=== PATIENT | female | born 1970 | race Caucasian/White ===

== ENCOUNTER 2020-07-09 14:00 | Outpatient (RCR) | payer BC, SELFPAY | END 2020-07-15 12:03 | disposition other institution (70) | LOC: HO.PT 14:00 | PROVIDERS: PCP Internal Medicine; Visit Provider Physician Assistant Medical | DX: S06.9X0D Unspecified intracranial injury without loss of consciousness, subsequent encounter (principal); X58.XXXD Exposure to other specified factors, subsequent encounter | CPT/HCPCS: 97110; 97140; 97530 ==

== ENCOUNTER 2023-07-06 18:42 | Outpatient (REF) | payer BC, SELFPAY ==
--- NOTE | ~2023-07-06 | MR_ITS ---
EXAMINATION: MR BRAIN WITHOUT CONTRAST CLINICAL INFORMATION: TBI 2019 COMPARISON: None TECHNIQUE: Multiplanar multisequence MR imaging of the brain was obtained without intravenous contrast. FINDINGS: There is no acute infarct on diffusion-weighted imaging. No extra-axial collection or mass effect/herniation. There is encephalomalacia, gliosis, and hemosiderin staining involving the left greater than right anterior and inferior frontal lobes, compatible with sequela of traumatic injury. No hydrocephalus. The ventricles are normal in morphology and size. The major flow voids at the skull base are preserved. The midline structures are normal. The cerebellar tonsils are normally positioned. The craniocervical junction is normal. Marrow signal is within normal limits. The visualized soft tissues are without significant abnormality. Mild ethmoid sinus mucosal thickening. MR/MR head/brain wo con IMPRESSION: Encephalomalacia and gliosis involving the left greater than right anterior and inferior frontal lobes, compatible with sequela of traumatic injury.
--- NOTE | ~2023-07-06 | MR_ITS ---
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 FINDINGS: Cervical Spine: Normal anatomic alignment. No suspicious marrow signal or focal osseous lesion. No significant marrow edema. The vertebral body heights are maintained. The intervertebral discs are of normal height and signal. The cervical spinal cord is normal in caliber and signal Limited evaluation of the soft tissues of the neck without demonstrated abnormalities. The left vertebral artery flow-void is not well-visualized and is likely congenitally diminutive with prominent right vertebral artery. Normal appearance of the cervicomedullary junction and visualized posterior fossa SPINAL LEVELS: C2-C3: No significant spinal canal or neuroforaminal narrowing C3-C4: Mild uncovertebral hypertrophy and facet arthropathy. Mild right neural foraminal narrowing. No significant spinal canal stenosis. C4-C5: Mild uncovertebral hypertrophy and facet arthropathy. Mild right neural foraminal narrowing. No significant spinal canal stenosis. C5-C6: No significant spinal canal or neuroforaminal narrowing C6-C7: Uncovertebral hypertrophy and mild facet arthropathy. Mild to moderate bilateral neural foraminal narrowing. No significant spinal canal stenosis. C7-T1: No significant spinal canal or neuroforaminal narrowing Lumbar Spine: Normal anatomic alignment. No suspicious marrow signal or focal osseous lesion. No significant marrow edema. L5 vertebral body hemangioma. The vertebral body heights are maintained. The intervertebral discs are of normal height and signal. The conus medullaris terminates at the level of L2. The distal spinal cord is normal in appearance. The cauda equina nerve roots appear normal. No significant abnormalities of the paraspinal musculature. Limited evaluation of the intra-abdominal structures without significant abnormalities. The abdominal aorta is of normal contour and caliber. SPINAL LEVELS: L1-L2: Shallow central disc extrusion with caudal and cranial migration of disc material which indents the midline ventral thecal sac but does not contribute to significant spinal canal stenosis. No significant neural foraminal narrowing. L2-L3: No significant spinal canal or neuroforaminal narrowing. L3-L4: No significant spinal canal or neuroforaminal narrowing. L4-L5: No significant spinal canal or neuroforaminal narrowing. Shallow disc bulge with posterior annular fissure. L5-S1: Shallow disc bulge with superimposed small left central protrusion. Mild facet arthropathy. MR/MR cervical spine wo con IMPRESSION: 1. Mild degenerative changes of the cervical spine as described above without significant spinal canal stenosis, cord compression, or cord signal abnormality. There is mild to moderate bilateral neural foraminal narrowing at C6-C7. 2. Mild degenerative changes of the lumbar spine as described above. No significant spinal canal stenosis, neural foraminal narrowing, or nerve impingement.
== END 2023-07-06 18:43 | disposition home or self-care (01) ==
LOC: HO.MRI 18:42
PROVIDERS: PCP Internal Medicine; Visit Provider Psychiatry & Neurology Neurology
DX: I61.9 Nontraumatic intracerebral hemorrhage, unspecified (principal); M50.20 Other cervical disc displacement, unspecified cervical region; M51.25 Other intervertebral disc displacement, thoracolumbar region
CPT/HCPCS: 70551; 72141; 72148

== ENCOUNTER 2023-07-06 20:17 | Outpatient (REF) | payer BC, SELFPAY | END 2023-07-06 20:18 | disposition home or self-care (01) | LOC: HO.MRI 20:17 | PROVIDERS: PCP Internal Medicine; Visit Provider Psychiatry & Neurology Neurology | DX: Z13.89 Encounter for screening for other disorder (principal) ==

== ENCOUNTER 2025-05-03 13:23 | Outpatient (AMB) | payer BC, SELFPAY ==
--- OUTSIDE RECORDS SUMMARY | 2025-05-03 13:26 | XMS_ITS | Clinical Summary ---
Author Organization [facility] Address [address] [place] [id number] Phone Care Team Providers Care Traveling Nurse Name Role Phone Lakeisha Yoon MD Primary Care Provide r Allergies Active Allergy Reactions Criticality Noted Date Comments Sulfa (Sulfonamide Antibiotics) 09/2022 Medications amLODIPine (NORVASC) 5 MG tablet 04/25/2023 Active amoxicillin-clav ulanate (AUGMENTIN) 875-125 mg per tablet Take 1 tablet by mouth 2 (two) times a day. 03/06/2023 Active levothyroxine (SYNTHROID, LEVOTHROID) 75 MCG tablet Take 1 tablet by mouth every morning. 04/01/2023 Active lifitegrast (XIIDRA) 5 % opthalmic solution Apply 1 drop to eye. 02/16/2023 Active pravastatin (PRAVACHOL) 40 MG tablet TAKE 1 TABLET BY MOUTH EVERY DAY 02/16/2023 Active Social History Tobacco Use Types Packs/Day Years Used Date Smoking Tobacco: Never Smokeless Tobacco: Never Tobacco Cessation:Counseling Given: Not Answered Alcohol Use Standard Drinks/Week Comments Yes 0 (1 standard drink = 0.6 oz pur e alcohol) rarely Education Answer Date Recorded Are you interested in more education? Not on imtiaz e 01/22/2023 Are you concerned about learning? Not on file 01/22/2023 No 01/22/2023 No 01/22/2023 Digital Access Answer Date Recorded No 02/20/2023 No 02/20/2023 Reliable internet access at home? Not on file 02/20/2023 Device with a working camera? Not on file Comments Unknown Sex and Gender Information Value Date Recorded Sex Assigned at Not on file Legal Sex Female 9:48 AM EDT Gender Identity Not on file Sexual Orientation Not on file Last Filed Vital Signs Vital Sign Reading Time Taken Comments Blood Pressure 120/80 04/27/2023 7:24 PM EDT Pulse 81 04/27/2023 7:24 PM EDT Temperature 36.1 C (97 F) 04/27/2023 7:24 PM EDT Respiratory Rate 20 04/27/2023 7:24 PM EDT Oxygen Saturation 99% 04/27/2023 7:24 PM EDT Inhaled Oxygen Concentration - - Weight 46.3 kg (102 lb) 04/27/2023 7:24 PM EDT Height 157.5 cm (5' 2 ) 04/27/2023 7:24 PM EDT Body Mass Index 18.66 04/27/2023 7:24 PM EDT Plan of Treatment Health Maintenance Due Date Last Done Comments LIPID PANEL 1968 TSH LEVEL 1968 DEPRESSION SCREENING 1980 HEPATITIS C SCREENING 01/25/1986 HIV ONE-TIME SCREENING (18-6 5 YEARS) 01/25/1986 PAP SMEAR 01/25/1989 MAMMOGRAM 2008 COLOGUARD 01/25/2013 COLONOSCOPY 01/25/2013 COLORECTAL CANCER SCREENING 01/25/2013 FIT TEST 01/25/2013 FOBT 01/25/2013 SIGMOIDOSCOPY 01/25/2013 VIRTUAL COLONOSCOPY 01/25/2013 ZOSTER VACCINES (1 of 2) 01/25/2018 PNEUMOCOCCAL VACCINES (50+ years) (2 of 2 - PCV) 05/29/2021 05/29/2020 COVID-19 VACCINE (4 - 2023-2 5 season) 2024 07/07/2021, 11/22/2020, 11/01/2020 Adult Td,Tdap Booster 03/11/2027 03/11/2017 , 03/05/2004 SMOKING STATUS SCREENING (On ce After 26 Yrs) Completed 04/27/2023 HEPATITIS A VACCINES Aged Out No long er eligible based on patient's age to complete this topic HIB VACCINES Aged Out No longer eligi ble based on patient's age to complete this topic MENINGOCOCCAL VACCINES (ACWY) Aged Out No longer eligible based on patient's age to complete this topic MENINGOCOCCAL VACCINES (B) Aged Out N o longer eligible based on patient's age to complete this topic Medical Devices Not on file Insurance Reviews42 [facility] [employer] [facility] [employer] [facility] Subscriber Plan / Payer (Ef fective 2017-Present) Name:Mary Ellen Mahmood Relation to Subscriber:Self Name:Mary Ellen Mahmood Payer ID:[id number] (NAIC) Group ID:[id number] Type:PPO Address: [address] Subscriber Plan / Payer (Ef fective 2017-Present) Name:Mary Ellen Mahmood Relation to Subscriber:Self Name:Mary Ellen Mahmood Payer ID:[id number] (NAIC) Group ID:[id number] Type:PPO Address: [facility] [id number], [place] [address] [place] [address] Care Teams Traveling Nurse Relationship Specialty Start Date End Date Lakeisha Yoon MD [address] [place] [id number] PCP - General Internal Medicine 06/07/20 Additional Source Comments The information contained in this document represents components of the legal health record. It is not the complete legal health record.[facility]
--- OUTSIDE RECORDS SUMMARY | 2025-05-03 13:26 | XMS_ITS | Clinical Summary ---
Author Organization [facility] [address] [place] [address] [place] [phone] Phone Care Team Providers Care Factory Helper Name Role Phone Archana Grimes MD Primary Care Prov ider Allergies Active Allergy Reactions Criticality Noted Date Comments Dog Dander 09/25/2015 Other Swelling 09/25/2015 Sulfa (Sulfonamide Antibiotics) 11/25 Medications cetirizine (ZyrTEC) 10 mg tablet Take 1 tablet (10 mg total) by mouth 1 (one) time each day. 2 Active EPINEPHrine (EpiPen 2-Anup) 0.3 mg/0.3 mL injection Inject 0.3 mL (0.3 mg total) into the thigh if needed for anaphylaxis. 1 Active ibuprofen (ADVIL,MOTRIN) 600 mg tablet Take 1 tablet (600 mg total) by mouth every 6 (six) hours if needed for mild pain. 4 Active pseudoephedrine (SUDAFED) 120 mg 12 hr tablet Take 1 tablet (120 mg total) by mouth every 12 (twelve) hours. Active lifitegrast (Xiidra) 5 % dropperette Administer 1 drop into both eyes 2 (two) times a day. 9 Active levothyroxine (SYNTHROID, LEVOTHROID) 75 mcg tablet TAKE 1 TABLET BY MOUTH EVERY DAY 90 tablet 1 5 Active pravastatin (PRAVACHOL) 40 mg tablet TAKE 1 TABLET BY MOUTH EVERY DAY 90 tablet 3 5 Active amLODIPine (NORVASC) 5 mg tablet TAKE 1 AND 1/2 TABLETS DAILY BY MOUTH 135 tablet 3 5 Active albuterol HFA (PROAIR HFA ; PROVENTIL HFA ; VENTOLIN HFA) 90 mcg/actuation inhaler INHALE 2 PUFFS INTO THE LUNGS EVERY 4 HOURS NEEDED FOR COUGH, WHEEZING OR SHORTNESS OF BREATH. 8.5 each 5 Active Active Problems Problem Noted Date Diagnosed Date LBBB (left bundle branch block) 01/05/2023 Overview (07/03/2024): 01/05/2023 Patient has signed AGAINST MEDICAL ADVICE form and declines to go to emergency room Irregular heart beat 09/30/2022 Overview (07/03/2024): 09/30/21- Patient is noted to have abnormal heart auscultation as well as irregular pulse on physical exam today. This could be related to regular use of pseudoephedrine. I have suggested EKG. Patient refuses. We discussed that failure to complete EKG could result in missed or delayed diagnosis of PACs, PVCs, atrial flutter, atrial fibrillation, heart block, other arrhythmia, serious injury, disability and/or . Patient has continued to refuse EKG AGAINST MEDICAL ADVICE. She does sign AMA form which is witnessed by triage nursing staff (Amanda). I have suggested pt update blood work including CBC, CMP, thyroid profile, and magnesium level as well given irregular pulse/abnormal heart auscultation. Electrolyte disturbance, anemia, and/or abnormal TSH could also be contributing to this. Patient appears frustrated and states I just had blood work done . We discussed that her lab work was last done 7 months ago. Also given that this is a new finding this further supports completing updated lab work and getting EKG. After continued discussion on reason for testing patient is agreeable to bloodwork and states that she will stop by lab to have this done. We discussed that lab work does not need to be done fasting and can be completed today. Does not appear that patient ended up completing the lab work. Raynaud's disease without gangrene 10/09/2021 HTN (hypertension) 07/15/2020 Assessment & Plan (03/19/2025 1:07 PM EDT): Orders: Basic metabolic panel; Future Thyroid stimulating hormone; Future Lipid panel with reflex to direct LDL; Future Assessment & Plan (01/01/2025 3:30 PM EDT): Blood pressure is mildly elevated today, however patient has a migraine. Will not make any changes on her medications. Will follow up in 2 months. Closed fracture of coccyx ([facility] V24, [facility] V28) 06/19/2020 Head trauma 06/13/2020 Overview (07/03/2024): Admitted [facility] 05/27-05/31/20. Left>right bifrontal contusions with intraparenchymal hemorrhage, subdural and subarachnoid bleeding, right occipital skull fx extending to skull base. 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 Wetzel (ENT). After 05/27/20 fall from ladder Hemotympanum, left 06/13/2020 Overview (07/03/2024): Following head trauma 05/27/2020 Pure hypercholesterolemia 07/28/2013 Assessment & Plan (03/19/2025 1:16 PM EDT): Orders: Basic metabolic panel; Future Thyroid stimulating hormone; Future Lipid panel with reflex to direct LDL; Future Allergic rhinitis 12/12/2012 Back pain 12/12/2012 Hip pain 12/12/2012 Hypothyroidism 12/12/2012 Assessment & Plan (03/19/2025 1:07 PM EDT): Orders: Basic metabolic panel; Future Thyroid stimulating hormone; Future Lipid panel with reflex to direct LDL; Future Neck pain 12/12/2012 Encounters Date Type Department Care Team Description 04/17/2025 Telephone Adult Medicine [address] [phone] Rema krishna, Archana Calhoun MD Forms/questionnaires (FMLA) 04/11/2025 Telephone Adult Medicine [address] [phone] Archana Wood MD Call Back Requested 03/19/2025 12:30 PM EDT Office Visit [address] [phone] Archana Wood MD Primary hypertension (Primary Dx); Hypothyroidism, unspecified type; Pure hypercholesterolemia; Dizziness 02/09/2025 2:22 PM EDT - 02/09/2025 11:59 PM EDT Hospital Encounter Radiology Department - [address] [phone] Cerebral hemorrhage ([facility] V24, [facility] V28) Discharge Disposition: Home or Self Care from Last 3 Months Immunizations Name Administration Dates Next Due Influenza Quadravalent, MDCK , 0.5ml, preservative free (Flucelvax) 6mo and older 07/15/2020 Influenza trivalent, with pr eservative (Fluzone; Afluria) 6mo and older 07/07/2021 Pneumococcal polysaccharide 23 valent (Pneumovax 23) 2yo and older 05/29/2020 Td Tetanus diptheria (Tdvax) 7yo and older 03/11,03/05/2004 Surgical History Surgery Date Site/Laterality Comments CHOLECYSTECTOMY 09/27/2007 PROCEDURE: HISTORICAL CHOLECYSTECTOMY ESOPHAGOGASTRODUODENOSCOPY 06/06/2010 PROCEDURE: [place] ESOPHAGOGASTRODUODENOSCOPY TRANSORAL DIAGNOSTIC; COMMENT: Dr Bishop - mild antral gastritis otherwise normal to the third part of the duodenum. Duodenal and gastric biopsies are normal. H. pylori is negative. COLONOSCOPY 06/06/2010 PROCEDURE: HISTORICAL COLONOSCOPY; COMMENT: Dr Bishop - normal. Random colonic biopsies normal. TONSILLECTOMY PROCEDURE: HISTORICAL TONSILLECTOMY OTHER SURGICAL HISTORY PROCEDURE: HISTORY OTHER; COMMENT: hemorrhoidectomy after vaginal delivery KNEE SURGERY Left PROCEDURE: HISTORICAL KNEE SURGERY; COMMENT: Dr. Mike Nguyen Medical History Medical History Date Comments Hypothyroidism 12/12/2012 DX:Hypothyroidis m Fibromyalgia 12/12/2012 DX:Fibromyalgia Neck pain 12/12/2012 DX:Neck pain Back pain 12/12/2012 DX:Back pain Hip pain 12/12/2012 DX:Hip pain Allergic rhinitis 12/12/2012 DX:Allergic rh initis Pure hypercholesterolemia 07/28/2013 DX:Pur e hypercholesterolemia Elevated blood pressure read ing without diagnosis of hypertension 07/22/2020 DX:Elevated blood pr essure reading without diagnosis of hypertension Family History Medical History Relation Name Comments No Known Problems Brother No Known Problems Daughter Abdominal Aortic Anuerysm (AAA) Father Diabetes Maternal Grandfather Breast cancer Mother Hypertension Mother Other: Cardiomyopathy Sister 1 No Known Problems Sister 2 Colon cancer Neg Hx Heart attack Neg Hx Ovarian cancer Neg Hx Stroke Neg Hx Uterine cancer Neg Hx Relation Name Status Comments Brother Alive 1963; healthy Daughter Alive 1995; [place]; h ealthy Father (Age 78) aneursym ( aortic), COPD Maternal Grandfather Maternal Grandmother Mother Alive CA Breast Paternal Grandfather Paternal Grandmother (Age 95) Sister 1 (Age 59) 1960 Sister 2 Alive 1967; identical twin; healthy Social History Tobacco Use Types Packs/Day Years Used Date Smoking Tobacco: Former Smokeless Tobacco: Never Tobacco Cessation:Counseling Given: Not Answered Alcohol Use Standard Drinks/Week Comments No 0 (1 standard drink = 0.6 oz pur e alcohol) Housing Instability Answer Date Recorde d Are you worried that in the next 2 months you may not have stable housing? No 12/31/2024 Food Access & Nutrition Answer Date Rec orded Do you have access to a vari ety of food including fruits and vegetables? Yes 12/31/2024 Health Literacy Answer Date Recorded How often do you need to hav e someone help you when you read instructions, pamphlets, or other written material from your doctor or pharmacy? Never 12/31/2024 Caregiver: How often do you need to have someone help you when you read instructions, pamphlets, or other written material from your doctor or pharmacy? Not on file 12/31/2024 Financial Risk Answer Date Recorded How hard is it for you to pa y for the very basics like food, housing, medical care, and air conditioning / heating? Not very hard 12/31/2024 Transportation Answer Date Recorded Has the lack of transportati on kept you from meetings, work, or from getting things needed for daily living? No Has the lack of transportati on kept you from medical appointments or from getting medications? No 12/31/2024 Social Isolation Answer Date Recorded How often do you feel lonely or isolated from th ose around you? Never 12/31/2024 Food Risk Answer Date Recorded Within the past 12 months we worried whether our food would run out before we got money to buy more. Never true 12/31/2024 Within the past 12 months th e food we bought just didn't last and we didn't have money to get more. Never true 12/31/2024 Dependent Care Answer Date Recorded Do you need help finding or paying for care for your loved ones. For example, child and family services specialist or elderly care for an older adult? No 12/31/2024 Education Answer Date Recorded Do you think completing more education or training, like finishing a GED, going to college, or learning a trade, would be helpful for you? No 12/31/2024 Employment and Income Answer Date Recor ded During the last four weeks, have you been actively looking for work? No 12/31/2024 Living Situation Answer Date Recorded What is your living situation? 0 12/31/2024 Comments No Sex and Gender Information Value Date Recorded Sex Assigned at Not on file Legal Sex Female 7:07 AM EST Gender Identity Not on file Sexual Orientation Not on file Obstetrics History Last Filed Vital Signs Vital Sign Reading Time Taken Comments Blood Pressure 138/83 03/19/2025 12:41 PM EDT Pulse 78 03/19/2025 12:41 PM EDT Temperature 36.9 C (98.5 F) 03/19/2025 12:41 PM EDT Respiratory Rate 16 03/19/2025 12:41 PM EDT Oxygen Saturation - - Inhaled Oxygen Concentration - - Weight 48.5 kg (107 lb) 03/19/2025 12:41 PM EDT Height 157.5 cm (5' 2 ) 03/19/2025 12:41 PM EDT Body Mass Index 19.57 03/19/2025 12:41 PM EDT Plan of Treatment Upcoming Encounters Date Type Department Care Team (Late st Contact Info) Description 09/21/2025 12:00 PM EST Office Visit Adult Medicine [address] [phone] Archana Grimes MD [address] [place] [address] Health Maintenance Due Date Last Done Comments Breast Cancer Screening 1970 Hepatitis B Vaccines (1 of 3 - 19+ 3-dose series) 01/25/1987 Zoster Vaccines (1 of 2) 01/25/2018 Cervical Cancer Screening: Pap Smear 06/04/2019 06/04/2016, 06/04/2016 Pneumococcal Vaccine: 50+ Years (2 of 2 - PCV) 05/29/2021 05/29/2020 HIV Screening 09/05/2022 COVID-19 Vaccine (4 - 2023-2 5 season) 2024 07/07/2021, 11/22/2020, 11/01/2020 Influenza Vaccine (#1) 2025 , 07/15/2020 Hypertension/CHF/CAD Annual BMP Blood Test 12/01/2025 12/01/2024, 10/11/2023 Social Influencers of Health Screening 12/31/2025 12/31/2024 Colorectal Cancer Screening: FIT-DNA (Cologuard) 01/12/2026 01/12/2023 DTaP,Tdap,and Td Vaccines (3 - Td or Tdap) 03/11/2027 03/11/2017, 03/05/2004 Cholesterol Screening (Lipid Panel) 10/11/2028 10/11/2023 Hepatitis C Screening Completed 01/27/2022 Colorectal Cancer Screening: Sigmoidoscopy Discontinued 01/12/2023 Depression Screening Completed 12/31/2024 HIB Vaccines Aged Out No longer eligi ble based on patient's age to complete this topic HPV Vaccines Aged Out No longer eligi ble based on patient's age to complete this topic Hepatitis A Vaccines Aged Out No long er eligible based on patient's age to complete this topic IPV Vaccines Aged Out No longer eligi ble based on patient's age to complete this topic MMR Vaccines Aged Out No longer eligi ble based on patient's age to complete this topic Meningococcal ACWY Vaccine Aged Out N o longer eligible based on patient's age to complete this topic Meningococcal B Vaccine Aged Out No l onger eligible based on patient's age to complete this topic RSV Immunization Patients Under 20 months Aged Out No longer eligible based on patient's age to complete this topic Varicella Vaccines Aged Out No longer eligible based on patient's age to complete this topic Procedures Procedure Name Priority Date/Time Associated Diagnosis Comments MR BRAIN WO CONTRAST Routine 02/09/2025 3:21 PM EDT Cerebral hemorrhage (CMS/HCC V24, CMS/HCC V28) COMPREHENSIVE METABOLIC PANEL Routine 12/01/2024 2:01 PM EST Dizziness LIPID PANEL Routine 10/11/2023 HM SIGMOIDOSCOPY Routine 01/12/2023 HM HEPATITIS C SCREENING Routine 01/27/2022 HM HPV Routine 06/04/2016 from Last 3 Months or Most Recently Relevant to Health Maintenance Results * MR Brain wo Contrast (02/09/2025 3:21 PM EDT) Anatomical Region Laterality Modality Head and Neck Magnetic Resonan ce 02/09/2025 5:28 PM EDT Impressions 02/09/2025 5:44 PM EDT Impression: 1. No acute intracranial process. 2. Encephalomalacia within the left frontal lobe which could be sequela of prior infarct/injury. -------- FINAL REPORT -------- Dictated By: Jessica David Dictated Date: 02/09/2025 17:28 ET Assigned Physician: Jessica David Reviewed and Electronically Signed By: Jessica David Signed Date: 02/09/2025 17:44 ET Workstation ID: [id number] Transcribed By: Self Edit Transcribed Date: 02/09/2025 17:28 ET Narrative 02/09/2025 5:44 PM EDT MRI BRAIN WITHOUT CONTRAST Clinical Statement: migraine Comparison: MRI of the brain from 12/18/2014 Technique: Multiplanar, multisequence MR images of the brain were obtained without contrast. Findings: There is no evidence of diffusion restriction. Minimal white matter hyperintensities within the supraventricular and periventricular region consistent with microvascular ischemic changes. Encephalomalacia within the left frontal lobe. Prominence of the right vertebral artery. The remainder of the flow voids are grossly within normal limits. The ventricular system is mildly prominent commensurate with the degree of volume loss. The basilar cisterns are normal. The craniocervical junction is normal. The orbits and globes are within normal limits. Mucosal thickening within the paranasal sinuses. Procedure Note Jessica David MD - 02/09/2025 MRI BRAIN WITHOUT CONTRAST Clinical Statement: migraine Comparison: MRI of the brain from 12/18/2014 Technique: Multiplanar, multisequence MR images of the brain wereobtained without contrast. Findings: There is no evidence of diffusion restriction. Minimal whitematter hyperintensities within the supraventricular and periventricularregion consistent with microvascular ischemic changes. Encephalomalaciawithin the left frontal lobe. Prominence of the right vertebral artery.The remainder of the flow voids are grossly within normal limits. Theventricular system is mildly prominent commensurate with the degree ofvolume loss. The basilar cisterns are normal. The craniocervicaljunction is normal. The orbits and globes are within normal limits.Mucosal thickening within the paranasal sinuses. IMPRESSION: Impression: 1. No acute intracranial process. 2. Encephalomalacia within the left frontal lobe which could be sequela ofprior infarct/injury. -------- FINAL REPORT -------- Dictated By: Jessica David Dictated Date: 02/09/2025 17:28 ET Assigned Physician: Jessica David Reviewed and Electronically Signed By: Jessica David Signed Date: 02/09/2025 17:44 ET Workstation ID: [id number] Transcribed By: Self Edit Transcribed Date: 02/09/2025 17:28 ET Denise Oneill NP [facility] [place]ED[place] Final Result * (ABNORMAL) Comprehensive metabolic panel (12/01/2024 2:01 PM EST) Sodium 140 133 - 145 mmol/L LAB CHEMISTRY METHOD 12/01/2024 7:03 PM EST [facility] Potassium 4.4 3.5 - 5.5 mmol/L LAB CHEMISTRY METHOD 12/01/2024 7:[address] [facility] Chloride 105 96 - 110 mmol/L LAB CHEMISTRY METHOD 12/01/2024 7:[address] [facility] CO2 31 21 - 32 mmol/L LAB CHEMISTRY METHOD 12/01/2024 7:[address] [facility] Anion Gap 4 3 - 11 LAB CHEMISTRY METHOD 12/01/2024 7:[address] [facility] Glucose 103(H) 70 - 100 mg/dL LAB CHEMISTRY METHOD 12/01/2024 7:[address] [facility] BUN 15 5 - 25 mg/dL LAB CHEMISTRY METHOD 12/01/2024 7:[address] [facility] Creatinine 0.73 0.50 - 1.10 mg/dL LAB CHEMISTRY METHOD 12/01/2024 7:[address] [facility] eGFR 97 >=60 mL/min/1. 73m2 LAB CHEMISTRY METHOD 12/01/2024 7:[address] [facility] Comment:Calculation based on the Chronic Kidney Disease Epidemiology Collaboration (CKD-EPI) equation refit without adjustment for race. BUN/Creatinine Ratio 20.5 LAB CHEMISTRY METHOD 12/01/2024 7:[address] [facility] Calcium 9.6 8.5 - 10.5 mg/dL LAB CHEMISTRY METHOD 12/01/2024 7:[address] [facility] AST (SGOT) 29 10 - 42 unit/L LAB CHEMISTRY METHOD 12/01/2024 7:[address] [facility] ALT (SGPT) 34 10 - 60 unit/L LAB CHEMISTRY METHOD 12/01/2024 7:[address] [facility] Alkaline Phosphatase 93 42 - 121 unit/L LAB CHEMISTRY METHOD 12/01/2024 7:[address] [facility] Total Protein 7.2 6.0 - 8.0 g/dL LAB CHEMISTRY METHOD 12/01/2024 7:03 PM EST [facility] Albumin 4.3 3.2 - 5.0 g/dL LAB CHEMISTRY METHOD 12/01/2024 7:03 PM EST [facility] Total Bilirubin 0.4 0.0 - 1.4 mg/dL LAB CHEMISTRY METHOD 12/01/2024 7:03 PM EST [facility] Blood Venous blood specimen / Unknown Venipuncture / Unknown 12/01/2024 2:01 PM EST 12/01/2024 2:01 PM EST Archana Grimes MD LAB BLOOD ORDERABL ES Final Result [facility] [address] [place] [address], [place] [phone] * (ABNORMAL) Lipid panel (10/11/2023) [facility] LDL/HDL Ratio 3 0 - 4 Triglycerides 220(A) 0 - 150 mg/dL Cholesterol 250(A) 0 - 200 mg/dL HDL 81 >=40 mg/dL LDL Cholesterol 125(A) 0 - 100 mg/dL Blood Venous blood specimen / Unknown [facility] Provider LAB BLOOD ORDERABLES Farideh l Result * Sigmoidoscopy (01/12/2023) [facility] Colorectal Cancer Screening: Sigmoidoscopy no interpretation , abstracted Anatomical Region Laterality Modality Other Historical Provider HEALTH MAINTENANCE Final Result * Hepatitis C Screening (01/27/2022) [facility] Hepatitis C Screening abstracted [facility] Provider HEALTH MAINTENANCE Final Result * Cervical Cancer Screening: HPV (06/04/2016) [facility] Cervical Cancer Screening: HPV negative, abstracted Historical Provider HEALTH MAINTENANCE Final Result from Last 3 Months or Most Recently Relevant to Health Maintenance Insurance [facility] Care Teams Factory Helper Relationship Specialty Start Date End Date Archana Grimes MD [address] [place] [address] [phone] PCP - General Internal Medicine 04/27/22
--- NOTE | 2025-05-03 13:33 | MHC.OFFVIS ---
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 She had a comminuted fracture of the right occipital bone and possibly the left. CAT scan showed intracerebral hemorrhages in the frontal lobes bilaterally, left greater than right, subarachnoid hemorrhage, subdural hematoma, and 5mm hematoma in the falx cerebri. She was in a coma for about 5 days with no recall. She was having multiple seizures, which were subsequently controlled, and she was taken off antiepileptic medications after about a month. She may have also fractured her coccyx. She made significant recovery. She was having pressure in her sinuses, left greater than right, and has pre-existing history of recurrent sinus infections, even before the head trauma. She has had some motion sickness since her accident with long car drives and skiing and takes Bonine medication as needed which used to help, but less effective the last few months. After driving to [place] with her in 10/2024, she felt off and like everything was shaking, which got worse over the next few days and she was unable to ski like usual. A similar feeling happened when skiing in [place] at the end of 10/2024. Describes feeling off center. She gets some headaches with pain all over head, associated with photophobia and nausea, but denies having headache during these episodes. She was doing better the last few weeks after being diagnosed with nystagmus and vertigo by eye doctor. She was in therapy for everything, including eye therapy, vestibular therapy, and for neck pain. She started therapy earlier this summer and thought it was helping, although headaches may worsen briefly after working on her neck. She tried meclizine a few times and it may have helped some, but she was not taking it regularly as it only masked symptoms. After driving on bumpy road, she had more dizziness. 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 [facility] Medical History (Updated 05/03/25 @ 13:37 by Denise Oneill CNP) Migraine Sinusitis Lumbar disc herniation Cervical disc herniation Cerebral hemorrhage Review of Systems Const Denies chills, Denies daytime sleepiness, Reports difficulty sleeping, Denies fatigue, Denies fever(s), Denies frequent falls, Reports headache(s), Denies increased appetite, Denies poor appetite, Denies snoring, Denies weakness, Denies weight gain and Denies weight loss Eyes Denies loss of vision ENT Denies vertigo, Reports dizziness, Reports headache(s) and Reports neck pain Card Denies chest pain at rest, Denies chest pain with activity, Denies syncope, Denies leg edema, Denies palpitations, Denies dyspnea and Denies dyspnea on exertion Resp Denies cough, Denies dyspnea, Denies dyspnea on exertion and Denies snoring GI Denies abdominal pain, Denies constipation, Denies heartburn, Denies diarrhea and Denies nausea Denies urinary frequency, Denies urinary incontinence and Denies urinary urgency Musc Denies abnormal gait, Reports back pain, Denies myalgias, Denies arthralgias, Reports neck pain, Reports numbness and Reports tingling Neuro Denies abnormal gait, Denies vertigo, Reports dizziness, Denies syncope, Denies frequent falls, Reports headache(s), Denies lack of coordination, Denies loss of vision, Denies memory loss, Reports numbness, Denies Other visual disturbances, Denies restless legs, Denies seizure-like activity, Reports tingling, Denies paresthesias, Denies tremor(s) and Denies weakness Psych Reports anxiety, Denies depression, Denies auditory hallucinations, Denies memory loss and Denies visual hallucinations Endo Denies fatigue and Denies palpitations Physical Exam Const Other: General Appearance:? normal, in no acute distress. Heart:? S1, S2 normal, no murmurs. Lungs:? clear anteriorly and posteriorly. Musculoskeletal:? normal. Extremities:? no edema. Psych:? alert, oriented, cognitive function intact, cooperative with exam. Neuro Other: Abnormal Neurological Findings:?none.? Mental Status: alert and oriented X 3. Normal attention, orientation, memory, and affect. Cranial Nerves: Pupils are equal, round, and reactive to light. External ocular muscles are intact. Visual teresa are full, no ptosis. Face is symmetrical, no facial weakness or droop. Facial sensations are normal. Tongue protrudes in midline. Palate elevates symmetrically. Shoulder shrugging is normal Motor Examination: Normal muscle tone, bulk and strength. No atrophy or fasciculations. No drift of the extended upper extremities. DTR 2+. Plantars are flexor. Sensory Exam: Normal light touch, temperature, pinprick, vibration, and joint-position sensations. Rhomberg sign is absent. Coordination: No ataxia. No titubation. Gait Exam: Within normal limits. Cerebellar Signs: [id number] is okay. Extrapyramidal System: No tremor, rigidity with normal facial expressions. No bradykinesia. No bradyphrenia. Normal arm swing and posture. No propulsion or retropulsion. Speech: Normal. No dysphasia or dysarthria. Results Reviewed Results Reviewed: 07/08/23 MRI brain: Encephalomalacia and gliosis involving the left greater than right anterior and inferior frontal lobes, compatible with sequela of traumatic injury. MRI LS and C spine shows mild degen disc disesae with no spinal stenosis or root compression. MRI Brain 01/2025: 1. No acute intracranial process 2. Encephalomalacia within the left frontal lobe Assessment & Plan Assessment & Plan (1) Vertigo: Code(s): R42 - Dizziness and giddiness Category: Medical Plan: Continue meclizine 25mg 1 tablet three times a day as needed for dizziness. Purpose/use of medication in symptomatic management of this condition reviewed. (2) Migraine: Code(s): G43.909 - Migraine, unspecified, not intractable, without status migrainosus Category: Medical Qualifiers: Intractability: not intractable Migraine type: migraine (< 15 days per month) without aura Status migrainosus presence: without status migrainosus Qualified Code(s): G43.009 - Migraine without aura, not intractable, without status migrainosus (3) Medication overuse headache: Code(s): G44.40 - Drug-induced headache, not elsewhere classified, not intractable Category: Medical (4) Cervical disc disease: Code(s): M50.90 - Cervical disc disorder, unspecified, unspecified cervical region Category: Medical (5) History of cerebellar hemorrhage: Code(s): Z86.79 - Personal history of other diseases of the circulatory system Category: Medical (6) History of skull fracture: Code(s): Z87.81 - Personal history of (healed) traumatic fracture Category: Medical Plan . Coding Level of Care Code Est Pt Level 4 (95510) Diagnoses Vertigo R42 Migraine without aura and without status migrainosus, not intractable G43.009 Intractability: not intractable Migraine type: migraine (< 15 days per month) without aura Status migrainosus presence: without status migrainosus Medication overuse headache G44.40 Cervical disc disease M50.90 History of cerebellar hemorrhage Z86.79 History of skull fracture Z87.81
== END 2025-05-03 13:59 | disposition home or self-care (01) ==
LOC: HO.HSM 13:24
PROVIDERS: PCP Internal Medicine; Referring Provider Internal Medicine; Visit Provider Registered Nurse
DX: R42 Dizziness and giddiness (principal); G43.009 Migraine without aura, not intractable, without status migrainosus; G44.40 Drug-induced headache, not elsewhere classified, not intractable; M50.90 Cervical disc disorder, unspecified, unspecified cervical region; Z86.79 Personal history of other diseases of the circulatory system; Z87.81 Personal history of (healed) traumatic fracture
CPT/HCPCS: 99214